=== PATIENT | female | born 1965 | race African-American/Black ===

== ENCOUNTER 2016-06-24 08:56 | Emergency (ER) | payer SELFPAY ==
[~2016-06-24] VITALS: Ht 165.1 cm; Wt 68.0 kg
[~2016-06-24 08:56] MED LIST: LEVO.075 PO
[2016-06-24 08:58] VITALS: BP 139/65; PULSE 92; RESP 20; TEMP 97.9; O2SAT 99
[2016-06-24] MEDS ORDERED: LISI-515 PO (09:20)
[2016-06-24] MEDS ORDERED: LOVA20TA PO (09:20)
[2016-06-24] MEDS ORDERED: METF850T PO (09:20)
[2016-06-24 09:29] VITALS: BP 132/79; PULSE 95; RESP 18; O2SAT 100
--- NOTE | 2016-06-24 09:40 | PD ---
HPI Chief Complaint: Dizziness Time Seen by Provider: 09:20 Travel History International Travel<30 days: No Contact w/Intl Traveler<30days: No Traveled to known affect area: No History of Present Illness HPI 50-year-old female complains of hand and feet shaky and weak. Patient states that the symptoms started 12 days ago. Patient denies any headache. Patient states that she had numbness sensation in the back of head last night. Patient denies any visual change. Patient denies any neck pain. Patient denies any chest pain or shortness of breath. Patient denies abdominal pain. Patient denies any dysuria or frequency. Patient denies any bladder or bowel control problem. Patient has history hypertension, diabetes, dyslipidemia. Patient was on metformin and glipizide daily. Patient states that she was seen at [facility] in the lung yesterday and had blood tests and CT scan of the brain done. Patient states that she was advised by ED physician to have an MRI outpatient for follow-up. Patient states that she started having numbness sensation in the back the head last night and came to the ED today. Patient denies any nausea vomiting. Patient denies any fever chills. PFSH Past Medical History Hx Anticoagulant Therapy: No Cardiovascular Problems: Yes High Cholesterol: Yes Chemotherapy: No Cerebrovascular Accident: No Diabetes: Yes Patient Takes Glucophage: Yes Respiratory: No Thyroid Disease: Yes ?: Unknown LMP: depo provera shot a mo. ago : 5 Para: 4 Miscarriage: 1 Past Surgical History Hysterectomy: No Social History Alcohol Use: No Tobacco Use: No Substance Use: No Allergies-Medications (Allergen,Severity, Reaction): Coded Allergies: No Known Allergies (Unverified , 06/24/16) Reported Meds & Prescriptions Reported Meds & Active Scripts Active Reported Metformin (Metformin HCl) 850 Mg Tab 850 Mg PO BIDPC With meals Lovastatin 20 Mg Tab 20 Mg PO DAILY Lisinopril 20 Mg Tab 20 Mg PO DAILY Review of Systems General / Constitutional: No: Fever Eyes: No: Visual changes HENT: No: Headaches Cardiovascular: No: Chest Pain or Discomfort Respiratory: No: Shortness of Breath Gastrointestinal: No: Abdominal Pain Genitourinary: No: Dysuria Musculoskeletal: Positive: Weakness, No: Pain Skin: No Rash Neurologic: No: Weakness Psychiatric: No: Depression Endocrine: No: Polydipsia Hematologic/Lymphatic: No: Easy Bruising Physical Exam Narrative GENERAL: Well-nourished, well-developed patient. SKIN: Focused skin assessment warm/dry. HEAD: Normocephalic. EYES: No scleral icterus. No injection or drainage. Pupils 3 mm equal reactive. NECK: Supple, trachea midline. No JVD or lymphadenopathy. CARDIOVASCULAR: Regular rate and rhythm without murmurs, gallops, or rubs. RESPIRATORY: Breath sounds equal bilaterally. No accessory muscle use. GASTROINTESTINAL: Abdomen soft, non-tender, nondistended. MUSCULOSKELETAL: No cyanosis, or edema. BACK: Nontender without obvious deformity. No CVA tenderness. Neurologic exam: Patient's awake, alert oriented 3. Patient moves all extremities well. No obvious focal neurological deficit. Data Data Last Documented VS Vital Signs Date Time Temp Pulse Resp B/P Pulse Ox O2 Delivery O2 Flow Rate FiO2 06/24/16 09:55 97 Nasal Cannula 2 06/24/16 09:29 95 18 132/79 06/24/16 08:58 97.9 Orders Complete Blood Count With Diff (06/24/16 09:31) Comprehensive Metabolic Panel (06/24/16 09:31) Prothrombin Time / Inr (Pt) (06/24/16 09:31) Act Partial Throm Time (Ptt) (06/24/16 09:31) Urinalysis - C+S If Indicated (06/24/16 09:31) Thyroid Stimulating Hormone (06/24/16 09:31) Iv Access Insert/Monitor (06/24/16 09:31) Ecg Monitoring (06/24/16 09:31) Oximetry (06/24/16 09:31) Mri Brain W/O Contrast (06/24/16 09:31) Mri C Spine W/O Contrast (06/24/16 09:31) Labs Laboratory Tests Test 06/24/16 09:51 White Blood Count 10.7 TH/MM3 Red Blood Count 4.64 MIL/MM3 Hemoglobin 14.5 GM/DL Hematocrit 41.1 % Mean Corpuscular Volume 88.7 FL Mean Corpuscular Hemoglobin 31.4 PG Mean Corpuscular Hemoglobin 35.4 % Concent Red Cell Distribution Width 12.5 % Platelet Count 346 TH/MM3 Mean Platelet Volume 8.2 FL Neutrophils (%) (Auto) 51.9 % Lymphocytes (%) (Auto) 38.4 % Monocytes (%) (Auto) 5.9 % Eosinophils (%) (Auto) 3.3 % Basophils (%) (Auto) 0.5 % Neutrophils # (Auto) 5.5 TH/MM3 Lymphocytes # (Auto) 4.1 TH/MM3 Monocytes # (Auto) 0.6 TH/MM3 Eosinophils # (Auto) 0.3 TH/MM3 Basophils # (Auto) 0.1 TH/MM3 CBC Comment DIFF FINAL Differential Comment Prothrombin Time 10.9 SEC Prothromb Time International 1.0 RATIO Ratio Activated Partial 28.6 SEC Thromboplast Time Urine Color YELLOW Urine Turbidity HAZY Urine pH 6.5 Urine Specific [place] 1.011 Urine Protein NEG mg/dL Urine Glucose (UA) NEG mg/dL Urine Ketones NEG mg/dL Urine Occult Blood NEG Urine Nitrite NEG Urine Bilirubin NEG Urine Urobilinogen LESS THAN 2.0 MG/DL Urine Leukocyte Esterase LARGE Urine RBC 1 /hpf Urine WBC 4 /hpf Urine Squamous Epithelial 7 /hpf Cells Urine Transitional Epithelial <1 /hpf Cells Urine Bacteria FEW /hpf Urine Mucus FEW /lpf Microscopic Urinalysis Comment CULT NOT INDICATED Sodium Level 134 MEQ/L Potassium Level 4.7 MEQ/L Chloride Level 103 MEQ/L Carbon Dioxide Level 22.3 MEQ/L Anion Gap 9 MEQ/L Blood Urea Nitrogen 11 MG/DL Creatinine 0.79 MG/DL Estimat Glomerular Filtration 94 ML/MIN Rate Random Glucose 137 MG/DL Calcium Level 9.5 MG/DL Total Bilirubin 0.5 MG/DL Aspartate Amino Transf 59 U/L (AST/SGOT) Alanine Aminotransferase 65 U/L (ALT/SGPT) Alkaline Phosphatase 65 U/L Total Protein 8.1 GM/DL Albumin 3.8 GM/DL Thyroid Stimulating Hormone 3.310 uIU/ML [address] [place] [address] Medical Decision Making Medical Screen Exam Complete: Yes Emergency Medical Condition: Yes Interpretation(s) Last Impressions Cervical Spine MRI 06/24/16930 Signed Impressions: Service Date/Time: Friday, June 24, 2016 10:40 - CONCLUSION: Degenerative disc changes as noted above. No significant narrowing of the spinal canal. There is mild narrowing of the right neural foramina at C4/C5 and C5-C6.. Namita Vilchis MD Brain MRI 06/24/16930 Signed Impressions: Service Date/Time: Friday, June 24, 2016 10:40 - CONCLUSION: Normal examination. Namita Vilchis MD 11:34 AM. CBC within normal limit. CMP within normal limit. AST 59. ALT 65. UA is negative. Differential Diagnosis Differential diagnosis including neuropathy, electrolyte imbalance, TIA, CVA. Narrative Course 50-year-old female with hand and feet feeling shaky and weakness. MRI of the brain and cervical spine shows no acute pathology. DJD changes. CBC CMP within normal limit. Diagnosis Primary Impression: Neuropathy Patient Instructions: General Instructions Additional Instructions: Continue with medications. Follow-up with personal physician and neurologist. Return if worse. Med/Other Pt SpecificInfo: No Change to Meds Disposition: 01 DISCHARGE HOME Condition: Stable Manjinder Bah MD Jun 24, 2016 09:40
[2016-06-24 09:55] VITALS: O2SAT 97
[2016-06-24 10:16] LABS: AUTOMATED NEUTROPHIL # 5.5 TH/MM3 (1.8-7.7); BASOPHIL # 0.1 TH/MM3 (0-0.2); BASOPHIL % 0.5 % (0.0-2.0); EOSINOPHIL # 0.3 TH/MM3 (0-0.4); EOSINOPHIL % 3.3 % (0.0-4.0); HEMATOCRIT 41.1 % (35.0-46.0); HEMO FLAGS DIFF FINAL; LYMPH % 38.4 % (9.0-44.0); LYMPHOCYTE # 4.1 TH/MM3 (1.0-4.8); MEAN CELL VOLUME 88.7 FL (80.0-100.0); MEAN CORPUSCULAR HEMOGLOBIN 31.4 PG (27.0-34.0); MEAN CORPUSCULAR HGB CONC 35.4 % (32.0-36.0); MONO % 5.9 % (0.0-8.0); NEUT % 51.9 % (16.0-70.0); PLATELET COUNT 346 TH/MM3 (150-450); RED BLOOD COUNT 4.64 MIL/MM3 (4.00-5.30); RED CELL DISTRIBUTION WIDTH 12.5 % (11.6-17.2); WHITE BLOOD COUNT 10.7 TH/MM3 (4.0-11.0)
[2016-06-24 10:21] LABS: BACTERIA, URINE FEW /hpf; BLOOD, URINE NEG (NEG); GLUCOSE,URINE NEG (NEG); KETONE, URINE NEG (NEG); MUCUS URINE FEW /lpf (OCC); NITRITE,URINE NEG (NEG); PH, URINE 6.5 (5.0-8.5); SQUAMOUS EPITHELIAL CELL URINE 7 /hpf (0-5); TRANSITIONAL EPI CELLS, URINE <1 /hpf; URINE COLOR YELLOW (YELLW/STRAW)
[2016-06-24 10:23] LABS: COMMENT (UR) CULT NOT INDICATED; CULTURE IF INDICATED CULT NOT INDICATED
[2016-06-24 10:29] LABS: APTT (PATIENT) 28.6 SEC (24.3-30.1); PROTHROMBIN TIME - PATIENT 10.9 SEC (9.8-11.6)
[2016-06-24 10:52] LABS: ALKALINE PHOSPHATASE 65 U/L (45-117); ALT (GPT) 65 U/L (10-53); ANION GAP 9 MEQ/L (5-15); AST (GOT) 59 U/L (15-37); BICARBONATE 22.3 MEQ/L (21.0-32.0); BLOOD UREA NITROGEN 11 MG/DL (7-18); CHLORIDE 103 MEQ/L (98-107); GLOMERULAR FILTRATION RATE 94 ML/MIN (>89); SODIUM (NA) 134 MEQ/L (136-145); TOTAL BILIRUBIN ADULT 0.5 MG/DL (0.2-1.0)
[2016-06-24 10:54] LABS: POTASSIUM 4.7 MEQ/L (3.5-5.1)
--- NOTE | 2016-06-24 11:02 | RADRPT ---
EXAM DATE/TIME: 06/24/2016 10:40 [facility] COMPARISON: No previous studies available for comparison. INDICATIONS : Cephalgia. MEDICAL HISTORY : Hypertension. Diabetes mellitus type 2. Hypercholesterolemia. SURGICAL HISTORY : None. ENCOUNTER: Initial ACUITY: 1 day PAIN SCORE: 5/10 LOCATION: cranial TECHNIQUE: Multiplanar, multisequence MRI of the brain was performed without contrast. FINDINGS: CEREBRUM: The ventricles are normal for age. No evidence of midline shift, mass lesion, hemorrhage or acute in farction. No extraaxial fluid collections are seen. The pituitary gland and suprasellar cistern are normal in configuration. WHITE MATTER: No significant signal abnormalities are seen in the white matter. POSTERIOR FOSSA: The cerebellum and brainstem are intact. The 4th ventricle is midline. The cerebellopontine angle is unremarkable. The cerebellar tonsils are normal in position. DIFFUSION IMAGING: No focal areas of restricted diffusion are seen. No evidence of acute infarction. EXTRACRANIAL: The visualized portions of the orbits and paranasal sinuses are unremarkable. CONCLUSION: Normal examination. Namita Vilchis MD on June 24, 2016 at 11:00 Board Certified Radiologist. This report was verified electronically.
--- NOTE | 2016-06-24 11:23 | RADRPT ---
EXAM DATE/TIME: 06/24/2016 10:40 [facility] COMPARISON: No previous studies available for comparison. INDICATIONS : Pain. MEDICAL HISTORY : Hypertension. Diabetes mellitus type 2. Hypercholesterolemia. SURGICAL HISTORY : None. ENCOUNTER: Initial ACUITY: 1 day PAIN SCORE: 5/10 LOCATION: cranial TECHNIQUE: Multiplanar, multisequence MRI examination of the cervical spine was performed. FINDINGS: VERTEBRAE: Normal vertebral body height. Homogeneous marrow signal. ALIGNMENT: No evidence of subluxation. CORD: Normal configuration and signal. POST FOSSA: The cerebellar tonsils are normal in position. C2-C3: The thecal sac has a normal configuration. There is no evidence of disc herniation or spinal canal s tenosis. The neural foramina are patent bilaterally. C3-C4: The thecal sac has a normal configuration. There is no evidence of disc herniation or spinal canal s tenosis. The neural foramina are patent bilaterally. C4-C5: There is a small anterior and posterior disc osteophyte complex. The posterior component minimally ef faces the adjacent thecal sac and contributes to mild right-sided neural foraminal narrowing. C5-C6: Anterior and posterior disc osteophyte complexes. The posterior central disc protrusion minimally eff aces the adjacent thecal sac. There is mild narrowing of the right neural foramina at this level. C6-C7: Small posterior central disc protrusion which minimally effaces the adjacent thecal sac. No evidence of neural foraminal narrowing. C7-T1: The thecal sac has a normal configuration. There is no evidence of disc herniation or spinal canal s tenosis. The neural foramina are patent bilaterally. CONCLUSION: Degenerative disc changes as noted above. No significant narrowing of the spinal canal. There is mild narrowing of the right neural foramina at C4/C5 and C5-C6.. Namita Vilchis MD on June 24, 2016 at 11:18 Board Certified Radiologist. This report was verified electronically.
== END 2016-06-24 12:16 | disposition home or self-care (01) ==
LOC: NEPC 08:56
DX: G62.9 Polyneuropathy, unspecified (principal); I10 Essential (primary) hypertension; E11.9 Type 2 diabetes mellitus without complications; E78.00 Pure hypercholesterolemia, unspecified; Z79.4 Long term (current) use of insulin
CPT/HCPCS: 70551; 72141; 80053; 81001; 84443; 85025; 85610; 85730